=== PATIENT | female | born 1985 | race Caucasian/White ===

== ENCOUNTER 2016-11-15 11:55 | Inpatient (IN) | payer MEDICAID ==
[~2016-11-15] VITALS: Ht 154.9 cm; Wt 70.9 kg
[~2016-11-15 11:55] MED LIST: FER325 PO; PRENAT PO
[2016-11-15 12:20] VITALS: Ht 154.9 cm; Wt 70.9 kg
[2016-11-15] MEDS ORDERED: LACTATED RINGER'S 1,000 ML IV PRN (12:30)
[2016-11-15] MEDS ORDERED: OXYTOCIN 30 UNITS/LR 500 ML IV PRN (12:30)
[2016-11-15] MEDS ORDERED: BUTORPHANOL 2 MG INJ IV PRN (12:30)
[2016-11-15] MEDS ORDERED: IBUPROFEN 600 MG TAB PO PRN (12:30)
[2016-11-15] MEDS ORDERED: MISOPROSTOL 200 MCG TAB PR PRN (12:30)
[2016-11-15] MEDS ORDERED: CARBOPROST 250 MCG INJ IM PRN (12:30)
[2016-11-15] MEDS ORDERED: OXYTOCIN 30 UNITS/LR 500 ML IV SCH ×2 (12:30)
[2016-11-15] MEDS ORDERED: LIDOCAINE 1% (MPF) 30 ML INJ INJ PRN (12:30)
[2016-11-15] MEDS ORDERED: METHYLERGONOVINE 0.2 MG INJ IM PRN (12:30)
[2016-11-15 12:36] LABS: BASOPHILS % 0.3 % (0.0-2.0); EOSINOPHILS # 0.1 10^3/ul (0.0-0.5); EOSINOPHILS % 0.7 % (0.0-7.0); HEMOGLOBIN 12.5 g/dl (12.0-16.0); LYMPHOCYTES # 1.9 10^3/ul (0.8-2.9); LYMPHOCYTES % 17.3 % (15.0-51.0); MEAN CORPUSCULAR HEMOGLOBIN 31.2 pg (29.0-33.0); MEAN CORPUSCULAR HGB CONC 34.6 g/dl (32.0-37.0); MEAN CORPUSCULAR VOLUME 90.1 fl (82.0-101.0); MEAN PLATELET VOLUME 11.5 fl (7.4-10.4); MONOCYTE # 0.7 10^3/ul (0.3-0.9); MONOCYTES % 6.5 % (0.0-11.0); NEUTROPHIL # 8.2 10^3/ul (1.6-7.5); NEUTROPHILS % 75.2 % (39.0-77.0); PLATELET COUNT 142 10^3/UL (140-440); RED CELL DISTRIBUTION WIDTH 14.3 % (11.5-14.5); UNCORRECTED WBC 10.9 10^3/ul (4.8-10.8); WHITE BLOOD COUNT 10.9 10^3/ul (4.8-10.8)
[2016-11-15 12:42] LABS: CONDITION 1; LH ANALYZER COMMENTS 1; SUSPECT 1
[2016-11-15] MEDS: LACTATED RINGER'S 1,000 ML IV SCH ×2 (12:44→17:45)
[2016-11-15 12:47] LABS: INR 0.86; PROTIME 11.7 Sec (12.2-14.2); PT RATIO 0.9
[2016-11-15] MEDS ORDERED: DINOPROSTONE 10 MG VAG SUPP VAG ONE (13:30)
[2016-11-16] MEDS: LACTATED RINGER'S 1,000 ML IV SCH ×3 (00:18→15:13)
[2016-11-16] MEDS ORDERED: DIPHENHYDRAMINE 50 MG INJ IV PRN ×3 (14:00→19:30)
[2016-11-16] MEDS ORDERED: ONDANSETRON 4 MG INJ IV PRN ×3 (14:00→19:30)
[2016-11-16] MEDS ORDERED: FENTAnyl 2MCG/ML-ROPIV 0.2% 100 ML BAG EPI SCH (14:00)
[2016-11-16] MEDS ORDERED: NALOXONE (0.4 MG/ML) INJ IV PRN ×2 (14:00→19:30)
[2016-11-16] MEDS ORDERED: CEFAZOLIN 2 GM/50 ML (PMX) 50 ML IVPB ONE (15:30)
[2016-11-16] MEDS ORDERED: LACTATED RINGER'S 1,000 ML IV ONE (16:09)
[2016-11-16] MEDS ORDERED: METOCLOPRAMIDE 10 MG INJ IV ONE (16:30)
[2016-11-16] MEDS ORDERED: FAMOTIDINE 20 MG INJ IV ONE (16:30)
[2016-11-16] MEDS ORDERED: CITRIC ACID/NA CITRATE 30 ML CUP PO ONE (16:30)
[2016-11-16] MEDS ORDERED: FENTAnyl 50 MCG/ML VIAL ONE (16:33)
[2016-11-16] MEDS ORDERED: morphine SULFATE/PF (10 MG/10 ML) INJ ONE (16:33)
[2016-11-16] MEDS ORDERED: PHENYLephrine (100 MCG/ML) 5ML SYG ONE (16:53)
[2016-11-16] MEDS ORDERED: OXYTOCIN 30 UNITS/LR 500 ML IV ONE ×2 (16:57→17:35)
[2016-11-16] MEDS ORDERED: ONDANSETRON 4 MG INJ ONE (17:16)
[2016-11-16] MEDS ORDERED: HYDROmorphONE (0.2 MG/ML) 10ML SYG IV PRN ×3 (17:30)
[2016-11-16] MEDS ORDERED: FENTAnyl 50 MCG/ML VIAL IV PRN (17:30)
[2016-11-16] MEDS ORDERED: PROCHLORPERAZINE 10 MG INJ IV PRN ×2 (17:30→19:30)
[2016-11-16] MEDS ORDERED: MEPERIDINE 25 MG INJ IV PRN (17:30)
[2016-11-16] MEDS ORDERED: KETOROLAC 30 MG INJ IV PRN (17:30)
--- NOTE | 2016-11-16 18:20 | HP ---
Date/Time of Note Date/Time of Note DATE: 11/16/16 TIME: 18:13 OB - History Hx of Present Free Text/Dictation admitted for induction of the labor at term Last Menstrual Period: Feb 09, 2016 Estimated Due Date: Nov 15, 2016 : 1 Para: 0 Care: Good Care Ultrasounds: Normal mid trimester US Obstetrical Complications: None Medical Complications: None Past Family/Social History * Past Medical, Surgical, Family and Obstetric Histories reviewed from chart. Blood Type: O+ Rubella: immune RPR/VDRL: Negative GBS Status: Negative HBsAG: Negative OB Admission Exam Physical Exam HEENT: WNL Heart: Rhythm Normal Lungs: Clear, Equal Abdomen: WNL Extremities: Normal Reflexes: Normal Cervical Dilatation: None Effacement: 0% Station: -3 Membranes: Intact Heart Rate: 130's Accelerations: Accelerations Present Decelerations: No Decelerations Varibility: Moderate Contractions on Admission: None Last 72 hours Lab Results CBC & BMP 11/15/16 12:10 OB Assessment/Plan Reason for admission: induction of labor Other Assessment: term gestation for induction of the labor Induction Method: per Misoprostol Protocol Other plan: 11/16/2016: Patient progressed her cervical dilatation to 1-2cm and 30% effacement. Self decided to have C/S as mode of delivery regardless of my notification against. Patient had good awareness of nature and complications of C/S procedure including but but limited to infection and hemorrhage and agreed to undergo C/S. LUX HERNANDEZ MD Nov 16, 2016 18:19
--- NOTE | 2016-11-16 18:22 | OPR ---
Operative Report Planned Procedure Procedure date Nov 16, 2016 Procedure(s) primary section Performed by: LUX HERNANDEZ MD Assisting provider: DEO MOISE MD Anesthesiologist: ARTIS RAMIREZ MD Pre-procedure diagnosis term gestation no desire for vaginal delivery Anesthesia Type: spinal Procedure Description Under satisfactory anaesthesia a Pfannenstiel incision was made two fingerbreadth above and parallel to the symphysis of pubis. Incision was extended laterally to the border of the Recti muscles on either sides. Incision was carried down with sharp and blunt dissection until fascia was reached. Anterior Recti muscle fascia was incised in mid portion and incision extended laterally to the border of skin incision. Fascia was mobilized from muscle superiorly and Recti muscles were from midline using sharp and blunt dissection. Peritoneum was visualized; Avoiding bowel and bladder it was incised . Incision was extended superiorly and inferiorly. Bladder blade was placed. Posterior peritoneum covering the lower segment of the uterus and lower segment of the uterus were incised. Incision was extended laterally to the border of Round Lig. on either sides and baby was delivered from OP. position . Amniotic fluid appeared clear. Cord blood was obtained and cord had 3 vessels . Placenta was delivered spontaneously and appeared intact and complete. Intrauterine cavity was rubbed with a laparotomy sponge. Uterine incision was closed in 2 layers using running stitches of No1 Monocryl. Hemostasis appeared secure. Ovaries and Fallopian tubes were within normal limits. Announcing needle, lap sponge and instrument count to be correct abdomen was closed in layers as follows: Peritoneum and Recti muscles with running stitches of 20 Vicryl. Fascia with running stitch of No 1 PDS. Subcutaneous tissue with running stitches of 20 Chromic and skin was closed using bienvenido. Patient tolerated the procedure well and was transferred to [facility] in good condition. Post-Procedure Post-procedure diagnosis S/P C/S Findings: Live Baby . Specimen removed: No Complications: None Pt Condition post procedure: stable Disposition: PACU Physician Certification I, the undersigned physician, hereby certify that I have discussed the procedure described in this consent form with this patient (or the patient's legal circulation representative), including: * The risk and benefits of the procedure; * Any adverse reactions that may reasonably be expected to occur; * Any alternative efficacious methods of treatment which may be medically viable ; * The potential problems that may occur during recuperation; * Potential for blood transfusion and associated risks/benefits; and * Any research or economic interest I may have regarding this treatment. I further certify that the patient/legally responsible person was encouraged to ask question and that all questions were answered. LUX HERNANDEZ MD Nov 16, 2016 18:22
[2016-11-16] MEDS ORDERED: HYDROmorphONE 1 MG/ML SYG IV PRN ×2 (19:30)
[2016-11-16] MEDS ORDERED: ZOLPIDEM 5 MG TAB PO PRN (19:30)
[2016-11-16] MEDS ORDERED: ACETAMINOPHEN/CODEINE #3 TAB PO PRN (21:00)
[2016-11-16] MEDS ORDERED: OXYTOCIN 30 UNITS/LR 500 ML IV PRN (21:00)
[2016-11-16] MEDS ORDERED: NA PHOSPHATE/BIPHOS 133 ML ENEMA PR PRN (21:00)
[2016-11-16] MEDS ORDERED: OXYCODONE/ACETAMINOPHEN (5/325) TAB PO PRN (21:00)
[2016-11-16] MEDS ORDERED: LANOLIN 7 GM TUBE TOP PRN (21:00)
[2016-11-16] MEDS ORDERED: MISOPROSTOL 200 MCG TAB PR PRN (21:00)
[2016-11-16] MEDS ORDERED: METHYLERGONOVINE 0.2 MG INJ IM PRN (21:00)
[2016-11-16] MEDS ORDERED: CARBOPROST 250 MCG INJ IM PRN (21:00)
[2016-11-16 21:05] VITALS: BP 128/70; PULSE 75; RESP 18
[2016-11-16] MEDS: IBUPROFEN 800 MG TAB PO SCH (22:00)
[2016-11-16] MEDS: CEFAZOLIN 2 GM/50 ML (PMX) 50 ML IV SCH (22:44)
[2016-11-16] MEDS: SENNA/DOCUSATE NA (8.6MG/50MG) TAB PO SCH (22:45)
[2016-11-17] VITALS: BP 121/73; PULSE 70; RESP 19
[2016-11-17] MEDS: LACTATED RINGER'S 1,000 ML IV SCH ×4 (03:39→20:38)
[2016-11-17 04:00] VITALS: BP 109/65; PULSE 69; RESP 19
[2016-11-17] MEDS: CEFAZOLIN 2 GM/50 ML (PMX) 50 ML IV SCH ×2 (05:29→12:37)
[2016-11-17] MEDS: CLINDAMYCIN 300 MG CAP PO SCH ×3 (05:33→17:45)
[2016-11-17] MEDS: IBUPROFEN 800 MG TAB PO SCH ×3 (05:41→21:38)
[2016-11-17 08:05] LABS: EOSINOPHILS % 0.3 % (0.0-7.0); HEMATOCRIT 30.8 % (37.0-47.0); LYMPHOCYTES # 1.1 10^3/ul (0.8-2.9); MEAN CORPUSCULAR HEMOGLOBIN 31.5 pg (29.0-33.0); MEAN CORPUSCULAR HGB CONC 35.7 g/dl (32.0-37.0); MEAN CORPUSCULAR VOLUME 88.3 fl (82.0-101.0); MEAN PLATELET VOLUME 11.9 fl (7.4-10.4); MONOCYTE # 0.7 10^3/ul (0.3-0.9); MONOCYTES % 4.8 % (0.0-11.0); NEUTROPHILS % 86.9 % (39.0-77.0); PLATELET COUNT 121 10^3/UL (140-440); RED BLOOD COUNT 3.49 10^6/ul (4.20-5.40); RED CELL DISTRIBUTION WIDTH 14.7 % (11.5-14.5); UNCORRECTED WBC 13.9 10^3/ul (4.8-10.8); WHITE BLOOD COUNT 13.9 10^3/ul (4.8-10.8)
[2016-11-17 08:12] LABS: CONDITION 1; LH ANALYZER COMMENTS 1
[2016-11-17 08:15] VITALS: BP 107/64; PULSE 68; RESP 18
[2016-11-17] MEDS: SENNA/DOCUSATE NA (8.6MG/50MG) TAB PO SCH ×2 (08:55→21:38)
[2016-11-17] MEDS ORDERED: BISACODYL 10 MG SUPP PR ONE (11:00)
[2016-11-17 12:00] VITALS: BP 113/62; PULSE 86; RESP 20
[2016-11-17] MEDS: KETOROLAC 30 MG INJ IV PRN ×2 (14:00→17:53)
--- NOTE | 2016-11-17 15:05 | PN ---
Date/Time of Note Date/Time of Note DATE: 11/17/16 TIME: 15:03 Assessment/Plan VTE Prophylaxis VTE Prophylaxis Intervention: ambulation Lines/Catheters IV Catheter Type (from Nrsg): Peripheral IV Assessment/Plan Assessment/Plan POD # 1 S/P C/S will advance diet and ambulate Subjective 24 Hr Interval Summary No BM passing flatus Constitutional: BM, ambulates, flatus, improved, no complaints, urine output Pain Control: well controlled Exam/Review of Systems Vital Signs Vitals Vital Signs Date Time Temp Pulse Resp B/P Pulse Ox O2 Delivery O2 Flow Rate FiO2 11/17/16 12:00 98.8 86 20 113/62 Room Air 11/17/16 05:16 96 21 Intake and Output 11/16/16 11/16/16 11/17/16 15:00 23:00 07:00 Intake Total 2150 ml 1500 ml Output Total 550 ml 850 ml 1400 ml Balance -550 ml 1300 ml 100 ml Exam Constitutional: alert, oriented, well developed Psych: nl mood/affect, no complaints Head: atraumatic, normocephalic Eyes: EOMI, nl conjunctiva, nl lids, nl sclera ENMT: mucosa pink and moist, nl external ears & nose, nl lips & teeth, nl nasal mucosa & septum Neck: non-tender, supple Respiratory: clear to auscultation, normal air movement Cardiovascular: nl pulses, regular rate and rhythm Gastrointestinal: nl liver, spleen, non-tender (tender sround the incision ), soft Genitourinary - Female: uterus (firm ) Musculoskeletal: nl extremities to inspection, nl gait and stance Extremities: normal pulses Neurological: BAR PILOT II-XII intact, nl mental status, nl speech, nl strength Skin: nl turgor, rash or lesions Lymph: nl lymph nodes Results Result Diagram: 11/17/16 0710 LUX HERNANDEZ MD Nov 17, 2016 15:05
[2016-11-17 16:00] VITALS: BP 117/69; PULSE 76; RESP 20
[2016-11-17 20:30] VITALS: BP 111/77; PULSE 100; RESP 18
[2016-11-18] MEDS: CLINDAMYCIN 300 MG CAP PO SCH ×3 (00:31→12:18)
[2016-11-18] MEDS ORDERED: BISACODYL 10 MG SUPP PR SCH (02:00)
[2016-11-18 04:00] VITALS: BP 116/75; PULSE 84; RESP 18
[2016-11-18] MEDS: LACTATED RINGER'S 1,000 ML IV SCH ×3 (04:38→20:38)
[2016-11-18] MEDS: IBUPROFEN 800 MG TAB PO SCH ×3 (05:44→22:19)
[2016-11-18 08:00] VITALS: BP 123/76; PULSE 71; RESP 19
[2016-11-18 08:25] LABS: BASOPHILS % 0.1 % (0.0-2.0); EOSINOPHILS # 0.1 10^3/ul (0.0-0.5); EOSINOPHILS % 0.7 % (0.0-7.0); HEMATOCRIT 30.4 % (37.0-47.0); HEMOGLOBIN 10.6 g/dl (12.0-16.0); LYMPHOCYTES # 1.2 10^3/ul (0.8-2.9); LYMPHOCYTES % 8.8 % (15.0-51.0); MEAN CORPUSCULAR HEMOGLOBIN 31.1 pg (29.0-33.0); MEAN CORPUSCULAR HGB CONC 34.9 g/dl (32.0-37.0); MEAN CORPUSCULAR VOLUME 89.3 fl (82.0-101.0); MEAN PLATELET VOLUME 11.4 fl (7.4-10.4); MONOCYTE # 0.7 10^3/ul (0.3-0.9); MONOCYTES % 4.8 % (0.0-11.0); NEUTROPHIL # 12.1 10^3/ul (1.6-7.5); NEUTROPHILS % 85.6 % (39.0-77.0); PLATELET COUNT 138 10^3/UL (140-440); RED BLOOD COUNT 3.41 10^6/ul (4.20-5.40); RED CELL DISTRIBUTION WIDTH 14.7 % (11.5-14.5); UNCORRECTED WBC 14.1 10^3/ul (4.8-10.8); WHITE BLOOD COUNT 14.1 10^3/ul (4.8-10.8)
[2016-11-18 08:58] LABS: CONDITION 1; LH ANALYZER COMMENTS 1
[2016-11-18] MEDS: SENNA/DOCUSATE NA (8.6MG/50MG) TAB PO SCH ×2 (10:36→20:57)
[2016-11-18 16:00] VITALS: BP 119/77; PULSE 77; RESP 20
--- NOTE | 2016-11-18 17:07 | DS ---
Date/Time of Note Date/Time of Note home next day DATE: 11/18/16 TIME: 17:05 Obstetrical Discharge Record Final Diagnosis Final Diagnosis: Term delivered Other Final Diagnosis S/P C/S Section Section: Primary Primary Indication elective Complications Induction: Yes Condition on Discharge Physical Assessment Last Vitals: see nurses notes Voiding: Yes Bowel Movement: Yes Breast: Soft, non-tender, Filling Fundus: Firm Abdomen and Incision: soft BS + Episiotomy: NA Calf Tenderness: No Patient Condition: Good LUX HERNANDEZ MD Nov 18, 2016 17:07
--- NOTE | 2016-11-18 17:09 | DS ---
Date/Time of Note Date/Time of Note home next day DATE: 11/18/16 TIME: 17:07 Discharge Summary Admission/Discharge Info Admit Date/Time Nov 15, 2016 at 11:55 Discharge Date/Time 11/19/2016 Final Diagnosis S/P C/S Patient Condition: Good Procedures primary C/S Hx of Present Illness [age] y/o female underwent primary C/S Hospital Course uncomplicated Home Meds Reported Medications Ferrous Sulfate* (Ferrous Sulfate*) 325 Mg Tabec, 325 MG PO DAILY, TAB 10/04/16 Multivit/Min/Fol Ac/Iron/Pren* ( S*) 1 Tab Tab, 1 TAB PO DAILY, TAB 10/04/16 Follow-up Plan 2 days in clinic for staple removal Pending Labs Laboratory Tests Test 11/18/16 07:10 Basophils # 0.010^3/ul (0.0-0.1) Basophils % 0.1% (0.0-2.0) Blood Morphology Comment Eosinophils # 0.110^3/ul (0.0-0.5) Eosinophils % 0.7% (0.0-7.0) Hematocrit 30.4% (37.0-47.0) Hemoglobin 10.6g/dl (12.0-16.0) Lymphocytes # 1.210^3/ul (0.8-2.9) Lymphocytes % 8.8% (15.0-51.0) Mean Corpuscular Hemoglobin 31.1pg (29.0-33.0) Mean Corpuscular Hemoglobin Concent 34.9g/dl (32.0-37.0) Mean Corpuscular Volume 89.3fl (82.0-101.0) Mean Platelet Volume 11.4fl (7.4-10.4) Monocytes # 0.710^3/ul (0.3-0.9) Monocytes % 4.8% (0.0-11.0) Neutrophils # 12.110^3/ul (1.6-7.5) Neutrophils % 85.6% (39.0-77.0) Nucleated Red Blood Cells # 0.010^3/ul (0.0-0.0) Nucleated Red Blood Cells % 0.0/100WBC (0.0-0.0) Platelet Count 17536^3/UL (140-440) Red Blood Count 3.4110^6/ul (4.20-5.40) Red Cell Distribution Width 14.7% (11.5-14.5) White Blood Count 14.110^3/ul (4.8-10.8) LUX HERNANDEZ MD Nov 18, 2016 17:09
--- NOTE | 2016-11-18 17:11 | PD.PPDC ---
[facility] Discharge Instruction Provider Information Physician Information 31 y/o female had primary C/S Diagnosis Final Diagnosis: S/P C/S Condition Patient Condition: Good Diet Diet: Resume Regular Diet Activity/Restrictions Activity: February Shower Restrictions: No Exercising No Lifting Nothing in the Vagina Return to Work or School: Jan 14, 2017 Follow-up Follow-up with Physician: 2, 3, Day/Days (in clinic for staple removal ) Return to clinic for [facility] [facility] Instructions: Fever greater than 101 Chills Excessive Vaginal Bleeding OB Instructions: Breast Tenderness Depression Surgical Instructions: Incisional Drainage Incisional Redness LUX HERNANDEZ MD Nov 18, 2016 17:11
[2016-11-18] MEDS ORDERED: DOXY100T2 PO (17:12)
[2016-11-18] MEDS ORDERED: IBUP800T25 PO (17:12)
[2016-11-18] MEDS ORDERED: Oxycodone/Acetamin (5/325) PO (17:12)
[2016-11-18 19:50] VITALS: BP 118/70; PULSE 80; RESP 16
[2016-11-18] MEDS: DOXYCYCLINE 100 MG TAB PO SCH (20:57)
[2016-11-19 04:10] VITALS: BP 128/80; PULSE 86; RESP 18
[2016-11-19] MEDS: LACTATED RINGER'S 1,000 ML IV SCH ×2 (04:38→12:16)
[2016-11-19] MEDS: IBUPROFEN 800 MG TAB PO SCH ×2 (05:54→14:53)
[2016-11-19 07:45] VITALS: BP 119/81; PULSE 98; RESP 16
[2016-11-19 08:30] LABS: BASOPHILS % 0.2 % (0.0-2.0); EOSINOPHILS # 0.2 10^3/ul (0.0-0.5); EOSINOPHILS % 1.6 % (0.0-7.0); HEMATOCRIT 31.7 % (37.0-47.0); HEMOGLOBIN 11.1 g/dl (12.0-16.0); LYMPHOCYTES # 1.5 10^3/ul (0.8-2.9); LYMPHOCYTES % 10.8 % (15.0-51.0); MEAN CORPUSCULAR HEMOGLOBIN 31.3 pg (29.0-33.0); MEAN CORPUSCULAR HGB CONC 35.1 g/dl (32.0-37.0); MEAN CORPUSCULAR VOLUME 89.2 fl (82.0-101.0); MEAN PLATELET VOLUME 11.2 fl (7.4-10.4); MONOCYTE # 0.7 10^3/ul (0.3-0.9); MONOCYTES % 4.9 % (0.0-11.0); NEUTROPHIL # 11.1 10^3/ul (1.6-7.5); NEUTROPHILS % 82.5 % (39.0-77.0); PLATELET COUNT 167 10^3/UL (140-440); RED BLOOD COUNT 3.56 10^6/ul (4.20-5.40); RED CELL DISTRIBUTION WIDTH 14.2 % (11.5-14.5); UNCORRECTED WBC 13.5 10^3/ul (4.8-10.8); WHITE BLOOD COUNT 13.5 10^3/ul (4.8-10.8)
[2016-11-19 08:40] LABS: CONDITION 1
[2016-11-19] MEDS ORDERED: DIPHTH/TET/ACEL PERTUSS (ADULT) 0.5 ML VIAL IM* ONE (09:00)
[2016-11-19] MEDS ORDERED: MEASLES,MUMPS,RUBELLA VACCINE INJ SC* ONE (09:00)
[2016-11-19] MEDS: SENNA/DOCUSATE NA (8.6MG/50MG) TAB PO SCH (09:30)
[2016-11-19] MEDS: DOXYCYCLINE 100 MG TAB PO SCH (09:51)
== END 2016-11-19 16:29 | disposition home or self-care (01) | DRG 766 ==
LOC: L-D 11:55 → PP1 11-16 21:00
PROVIDERS: ADMIT Obstetrics & Gynecology; ATTEND Obstetrics & Gynecology
PROC: 10D00Z1 Extraction of Products of Conception, Low, Open Approach (ICD-10-PCS; principal; 2016-11-16 17:00)
DX: O48.0 Post-term pregnancy (principal); Z37.0 Single live birth; Z3A.40 40 weeks gestation of pregnancy
CPT/HCPCS: 85025; 85610; 85730; 86592; 86900; 86901; 90715; 94760; 99464; J0690; J1885; J2274; J2370; J2405; J2590; J2765; J3010; J7120

== ENCOUNTER 2018-10-15 00:08 | Emergency (ER) | END 2018-10-15 00:41 | disposition left against medical advice (07) ==